=== PATIENT | female | born 1960 | race Asian ===

== ENCOUNTER 2018-12-09 16:07 | Inpatient (IN) | payer OTHER ==
[~2018-12-09] VITALS: Ht 167.6 cm; Wt 55.8 kg
--- NOTE | 2018-12-09 16:07 | Emergency Room Report ---
History of Present Illness General Chief Complaint: Generalized Weakness Source: Patient Present Illness HPI Patient is a 58-year-old female brought in by EMS after increased generalized weakness. Patient was having a bladder stimulator implanted. Reportedly the patient had been given subcu lidocaine.Patient denied any prior history of seizures. She reports having some pain during the procedure. Patient was noted to be tachycardic and hypertensive by the urologist from [facility] who performed the procedure. Patient was reportedly given 20 cc 1% lidocaine. Patient denies any recent illness. She denied prior history of hypertension or cardiac illness. Patient found to be somewhat unresponsive. Allergies: Coded Allergies: No Known Allergies (Unverified , 12/09/18) Patient History Past Medical History: see triage record Reviewed Nursing Documentation: PMH: Agreed; PSxH: Agreed Nursing Documentation-PMH Past Medical History: No Stated History Review of Systems All Other Systems: negative except mentioned in HPI Physical Exam Vital Signs Date Time Temp Pulse Resp B/P (MAP) Pulse Ox O2 Delivery O2 Flow Rate FiO2 12/09/18 16:00 98.2 78 18 119/75 100 General Appearance: well appearing, no apparent distress, alert, GCS 15 Head: normocephalic, atraumatic ENT: hearing grossly normal, normal voice Neck: full range of motion, supple Respiratory: chest non-tender, lungs clear, no respiratory distress, speaking full sentences Cardiovascular #1: normal inspection, normal peripheral pulses, no edema Gastrointestinal: normal inspection, normal bowel sounds Musculoskeletal: normal inspection, no calf tenderness Neurologic: normal inspection, alert, oriented x3, responsive, normal gait Psychiatric: mood/affect normal Skin: no rash Medical Decision Making Diagnostic Impression: Primary Impression: Chest pain Additional Impressions: Lidocaine overdose Incomplete right bundle branch block ER Course Patient presented for altered level consciousness during procedure. Differential diagnosis include was not limited to cardiac arrhythmia, intracranial hemorrhage, seizure, lidocaine toxicity among others. Patient was noted to have procedure which she had local anesthesia only. Per surgeon patient was noted to have tachycardia as well as hypertension at the time of altered mental status. EKG interpreted by me showed normal sinus rhythm with incomplete right bundle branch block and some ST changes which are nonspecific. Repeat EKG was unchanged. Patient's troponin was noted to be unchanged. Patient did have some chest pain which resolved after aspirin.Dr. Evan Cabezas was contacted for inpatient management Labs Test 12/09/18 16:44 12/09/18 18:11 White Blood Count 5.6 K/UL (4.8-10.8) Red Blood Count 4.41 M/UL (4.20-5.40) Hemoglobin 14.3 G/DL (12.0-16.0) Hematocrit 40.0 % (37.0-47.0) Mean Corpuscular Volume 91 FL (80-99) Mean Corpuscular Hemoglobin 32.3 PG (27.0-31.0) Mean Corpuscular Hemoglobin Concent 35.7 G/DL (32.0-36.0) Red Cell Distribution Width 10.2 % (11.6-14.8) Platelet Count 150 K/UL (150-450) Mean Platelet Volume 6.2 FL (6.5-10.1) Neutrophils (%) (Auto) 54.2 % (45.0-75.0) Lymphocytes (%) (Auto) 37.2 % (20.0-45.0) Monocytes (%) (Auto) 5.0 % (1.0-10.0) Eosinophils (%) (Auto) 2.2 % (0.0-3.0) Basophils (%) (Auto) 1.4 % (0.0-2.0) Prothrombin Time 10.1 SEC (9.30-11.50) Prothromb Time International Ratio 1.0 (0.9-1.1) Activated Partial Thromboplast Time 26 SEC (23-33) Sodium Level 143 MMOL/L (136-145) Potassium Level 3.4 MMOL/L (3.5-5.1) Chloride Level 107 MMOL/L (98-107) Carbon Dioxide Level 30 MMOL/L (21-32) Anion Gap 6 mmol/L (5-15) Blood Urea Nitrogen 13 mg/dL (7-18) Creatinine 0.8 MG/DL (0.55-1.30) Estimat Glomerular Filtration Rate > 60 mL/min (>60) Glucose Level 91 MG/DL (74-106) Calcium Level 8.7 MG/DL (8.5-10.1) Total Bilirubin 1.1 MG/DL (0.2-1.0) Direct Bilirubin 0.2 MG/DL (0.0-0.3) Aspartate Amino Transf (AST/SGOT) 19 U/L (15-37) Alanine Aminotransferase (ALT/SGPT) 19 U/L (12-78) Alkaline Phosphatase 71 U/L (46-116) Total Protein 6.4 G/DL (6.4-8.2) Albumin 3.5 G/DL (3.4-5.0) Globulin 2.9 g/dL Albumin/Globulin Ratio 1.2 (1.0-2.7) Troponin I 0.002 ng/mL (0.000-0.056) EKG Diagnostic Results Rate: normal Rhythm: NSR ST Segments: other - incomplet right bundle branch block Rhythm Strip Diag. Results EP Interpretation: yes Rhythm: NSR, no PVC's, no ectopy Last Vital Signs Date Time Temp Pulse Resp B/P (MAP) Pulse Ox O2 Delivery O2 Flow Rate FiO2 12/09/18 16:00 98.2 78 18 119/75 100 Status: improved Disposition: ADMITTED INPATIENT Condition: Serious Jason Raya MD Dec 09, 2018 16:07
--- NOTE | 2018-12-09 16:26 | NUR ---
ED Nurse Note: Pt was having procedure for over active bladder and she developed HTN 190/115. Upon arrival pt denies pain. Pt is AAOx4 respirations are even and unlabored. Fam at bedside.
--- NOTE | 2018-12-09 16:40 | NUR ---
ED Nurse Note: PT TO CT VIA JOMAR
[2018-12-09 16:47] VITALS: BP 130/76
--- NOTE | 2018-12-09 16:50 | NUR ---
ED Nurse Note: PT BACK FROM CT VIA JOMAR
--- NOTE | 2018-12-09 17:07 | Diagnostic Imaging Report ---
Indications: Headache Technique: Spiral acquisitions obtained through the brain. Angled axial and coronal 5 x 5 mm slices were reconstructed. Total dose length product 1418.12 mGycm. CTDI vol(s) 70.38 mGy. Dose reduction achieved using automated exposure control Comparison: None. Findings: No acute intercranial hemorrhage nor edema. No mass effect nor midline shift. 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 Otherwise intact calvarium. Normal size ventricles and extra axial CSF spaces. Visualized orbits and sinuses are unremarkable. 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
[2018-12-09 17:16] LABS: BASOPHILS % (AUTO) 1.4 % (0.0-2.0); EOSINOPHILS % (AUTO) 2.2 % (0.0-3.0); HEMOGLOBIN 14.3 G/DL (12.0-16.0); LYMPHOCYTES % (AUTO) 37.2 % (20.0-45.0); MEAN CORPUSCULAR VOLUME 91 FL (80-99); NEUTROPHILS % (AUTO) 54.2 % (45.0-75.0); PLATELET COUNT 150 K/UL (150-450); RED BLOOD COUNT 4.41 M/UL (4.20-5.40); RED CELL DISTRIBUTION WIDTH 10.2 % (11.6-14.8); WHITE BLOOD COUNT 5.6 K/UL (4.8-10.8)
[2018-12-09 17:19] LABS: ANION GAP 6 mmol/L (5-15); BLOOD UREA NITROGEN 13 mg/dL (7-18); CALCIUM 8.7 MG/DL (8.5-10.1); CARBON DIOXIDE 30 MMOL/L (21-32); CHLORIDE 107 MMOL/L (98-107); CREATININE 0.8 MG/DL (0.55-1.30); POTASSIUM 3.4 MMOL/L (3.5-5.1); SODIUM 143 MMOL/L (136-145)
[2018-12-09 17:30] LABS: ALANINE AMINOTRANSFERASE 19 U/L (12-78); ALBUMIN 3.5 G/DL (3.4-5.0); ALBUMIN/GLOBULIN RATIO 1.2 (1.0-2.7); ALKALINE PHOSPHATASE 71 U/L (46-116); ASPARTATE AMINO TRANSFERASE 19 U/L (15-37); BILIRUBIN,TOTAL 1.1 MG/DL (0.2-1.0)
[2018-12-09 17:31] LABS: BILIRUBIN,DIRECT 0.2 MG/DL (0.0-0.3)
[2018-12-09] MEDS ORDERED: Aspirin Baby 81mg ORAL ONE (17:45)
--- NOTE | 2018-12-09 19:07 | NUR ---
ED Nurse Note: REPORT GIVEN TO AME GARCIA.
[2018-12-09 19:22] VITALS: BP 126/79
--- NOTE | 2018-12-09 19:23 | NUR ---
ED Nurse Note: recieved pt on bed, daughter on bedside. pt is connected to the monitor with vs within normal limit.pt denies chest pain. pt has no complaint at the moment. will continue to monitor.
[2018-12-09] MEDS ORDERED: NKM (19:37)
[2018-12-09 21:30] VITALS: BP 130/80
--- NOTE | 2018-12-09 21:30 | NUR ---
ED Nurse Note: pt was admitted to the hospital report given to lucinda cerda, pt tranferd to tele.
--- NOTE | 2018-12-09 21:40 | NUR ---
NURSE NOTES: Received patient from ED via gurney. Patient is awake alert and oriented x4. Breathing even and unlabored on room air. Placed on rug dyer helper showing SR. Vitals signs stable. Oriented to room and unit. Bed in lowest position. Call light within reach. Will continue plan of care. Addendum: 12/09/18 at 2320 by KATHIE WALLS RN Notified Dr. Cabezas for admission order.
--- NOTE | 2018-12-09 23:00 | NUR ---
NURSE NOTES: Called 's contact number for admission order, phone kept ringing and unable to leave a message. Left a message at [phone] for admission order. Awaiting call back.
[2018-12-10] VITALS: BP 110/68
--- NOTE | 2018-12-10 01:30 | NUR ---
NURSE NOTES: Admission order received and carried out
[2018-12-10 04:00] VITALS: BP 93/42
--- NOTE | 2018-12-10 07:20 | NUR ---
HAND-OFF: Report given to AME Monterroso.
--- NOTE | 2018-12-10 07:45 | NUR ---
NURSE NOTES: Received report from AME Gasca. Patient in bed resting. No active s/s cardiac, respiratory distress noticed at this time. SR with HR 69. Denies pain at this time. IV site asymptomatic, patent, intact. AO x4. Bed in lowest position, side rails up x3, call light within reach. Will continue to monitor.
[2018-12-10 08:00] VITALS: BP_SYST 109; BP_SYST 112; BP_DIAS 71; BP_DIAS 77
[2018-12-10] MEDS ORDERED: Aspirin Baby 81mg NG SCH (09:00)
[2018-12-10 12:00] VITALS: BP 112/77
[2018-12-10 16:00] VITALS: BP 122/77
--- NOTE | 2018-12-10 16:13 | NUR ---
*-* INSURANCE*-* ALL CLINICALS HAVE BEEN FAXED TO: IPA: MARY LOU Garcia#: [phone]
--- NOTE | 2018-12-10 17:10 | Cardiology Progress Note ---
Assessment/Plan Assessment/Plan The patient is seen and examined,full consult note is dictated. Objective Last 24 Hour Vital Signs Date Time Temp Pulse Resp B/P (MAP) Pulse Ox O2 Delivery O2 Flow Rate FiO2 12/10/18 16:00 97.2 73 20 122/77 (92) 97 12/10/18 12:00 97.9 69 19 112/77 (89) 97 12/10/18 12:00 73 12/10/18 09:00 Room Air 12/10/18 08:00 97.5 73 20 109/71 (84) 97 12/10/18 08:00 73 12/10/18 04:00 69 12/10/18 04:00 97.2 67 20 93/42 (59) 97 12/10/18 00:00 98.1 62 20 110/68 (82) 95 12/10/18 00:00 58 12/09/18 22:06 67 12/09/18 21:30 97.9 67 20 130/80 (97) 100 12/09/18 21:30 Room Air 12/09/18 21:30 98.0 68 16 126/79 100 Room Air 12/09/18 19:22 98.0 68 16 126/79 100 Room Air Intake and Output 12/09/18 12/10/18 19:00 07:00 Intake Total 1000 ml 240 ml Balance 1000 ml 240 ml Intake Oral 240 ml IV Total 1000 ml # Voids 1 Laboratory Tests Test 12/09/18 18:11 12/10/18 06:25 Troponin I 0.002 ng/mL (0.000-0.056) 0.013 ng/mL (0.000-0.056) Jared Duenas MD Dec 10, 2018 17:10
--- NOTE | 2018-12-10 17:15 | History and Physical Report ---
DATE OF ADMISSION: 12/09/2018 SUBJECTIVE: This is a 58-year-old oriental female came to the emergency room for acute chest pain and was found to have incomplete right bundle-branch block. The patient denies any fever or chills. PAST MEDICAL HISTORY: None. MEDICATIONS: None. PHYSICAL EXAMINATION: GENERAL: This is elderly Indonesian male sitting in the bed. Family is at bedside. No distress. The patient is Full Code. VITAL SIGNS: Blood pressure 93/42 asymptomatic, pulse 69, respirations 20, and temperature 97.2. HEENT: NAD. SKIN: Good skin turgor. CHEST: Bilaterally clear. CARDIOVASCULAR: Regular rhythm. No gallop. No murmur. ABDOMEN: Soft. Positive bowel sound. EXTREMITIES: No CCE. NEUROLOGICALLY: No focal deficit. LABORATORY AND DIAGNOSTIC DATA: White count 5.6, hemoglobin 14, platelets are 150. Chemistry panel, sodium 143, potassium 3.4. Troponin is 0.0022 and now 0.13. Albumin 3.5. EKG nonspecific ST-T wave changes and right bundle-branch block. ASSESSMENT: 1. Acute coronary syndrome. 2. Right bundle-branch block. 3. Hypokalemia. 4. Positive troponin, waiting for Cardiology consult. Continue aspirin. 5. Rule out of myocardial infarction. 6. Probably the patient needs a stress test. Discussed with daughter and mother. Evan Cabezas M.D. DR: Brown JOB#: [id number] CC: DIANE
--- NOTE | 2018-12-10 17:24 | NUR ---
NURSE NOTES: Dr. Cabezas made aware patient cleared by cardiology standpoint. Per Dr. Cabezas discharge patient home and follow up in office on Friday12/14/18, at [phone]. [phone] [facility] [address].
--- NOTE | 2018-12-10 18:30 | NUR ---
NURSE NOTES: Patient discharged home per Dr. Cabezas. Patient ID removed and placed in shredder. IV removed, quality assurance monitor returned to monitoring and evaluation advisor. Patient taking personal vehicle with family member in stable condition. Patient discharged with all belongings. Made patient, family member aware of follow up appointment.
--- NOTE | 2018-12-10 20:11 | NUR ---
CASE MANAGEMENT: REVIEW 58/F BIBA FROM HOME CC: CHEST PAIN SI: LIDOCAINE OVERDOSE . INCOMPLETE RIGHT BUNDLE BRANCH BLOCK T 97.9 HR 78 RR 18 BP 130/80 SAT 100% ROOM AIR K 3.4 IS: ASA PO X1 K-DUR 40mEq PO X1 PATIENT ADMITTED TO TELEMETRY UNIT 12/09/2018 DCP: PATIENT IS FROM HOME
--- NOTE | 2018-12-11 14:31 | NUR ---
*-* INSURANCE *-* ALL CLINICALS AND REVIEWS FAXED TO: [facility] F:[phone] Addendum: 12/11/18 at 1436 by ANA DANIELSON CM ARLETTE#[id number]
--- NOTE | 2018-12-11 16:22 | Discharge Summary ---
Discharge Summary Discharge Summary _ DATE OF ADMISSION: 12/09/2018 DATE OF DISCHARGE: 12/10/2018 DISCHARGED BY: Dr. Evan Cabezas CONSULTANTS: Dr. Jared Duenas BRIEF HOSPITAL COURSE: Patient is a 58-year-old [place] female, who came to the emergency room for complaints of On evaluation at ED, vital signs were stable. Patient was undergoing an outpatient procedure. At that time she had altered mental status. She was noted to have incomplete right bundle branch block and ST changes. Repeat EKG was unchanged. Initial troponin was negative. She complained of chest pain episode. She was admitted for evaluation of chest pain and right bundle branch block. She underwent cardiac evaluation. FINAL DIAGNOSES: [] DISPOSITION: Patient was discharged home. DISCHARGE INSTRUCTIONS: Follow-up in a week. I have been assigned to complete a discharge summary on this account, I was not involved with the patient's management. Grace Posada NP Dec 11, 2018 16:22
--- NOTE | 2018-12-11 20:15 | Consultation ---
DATE OF CONSULTATION: 12/10/2018 CONSULTING PHYSICIAN: Jared Duenas M.D. REFERRING PHYSICIAN: Lopez Cabezas M.D. REASON FOR CONSULTATION: Management of chest pain. HISTORY OF PRESENT ILLNESS: The patient is a very unfortunate 58-year-old lady, who was brought in by EMS for management of tachycardia, hypotension, and generalized weakness. Apparently, the patient was having a procedure at [facility], which was a bladder stimulator implantation and during this procedure becomes tachycardic and hypotensive. Reportedly, the patient received 20 mL of 1% lidocaine for this procedure. She was brought into the emergency department of this hospital. Initial blood pressure was 119/75 mmHg and heart rate was 78 beats per minute. ECG showed sinus rhythm with incomplete right bundle-branch block and nonspecific ST and T-wave abnormalities. Initial troponin I level was reported to be within normal limits. The patient was, however, admitted to telemetry for evaluation and management of chest pain. Cardiology consultation was made at the request of Dr. Cabezas for evaluation and management of chest pain. In the emergency department on 12/09/2018, the patient had a 2-D echocardiography, which showed normal LV systolic function with LVEF of about 70% to 75%, mild aortic valve sclerosis, normal left ventricular diastolic function, mild mitral regurgitation, and right ventricular systolic pressure estimated to be 41 mmHg consistent with mild pulmonary hypertension. PAST MEDICAL HISTORY: None. PAST SURGICAL HISTORY: Bladder stimulator implantation. ALLERGIES: No known drug allergies. FAMILY HISTORY: No premature coronary artery disease or arrhythmogenic in the first-degree relatives. REVIEW OF SYSTEMS: HEENT: Denies any headache, diplopia, or blurred vision. CONSTITUTIONAL: Denies any fever, chills, night sweats, or weight loss. The patient had some generalized weakness. CARDIOVASCULAR: chest pain, shortness of breath, PND, orthopnea, or leg swelling. PULMONARY: Denies any cough, hemoptysis, or wheezing. GASTROINTESTINAL: Denies any nausea, vomiting, diarrhea, constipation, abdominal pain, or GI bleed. GENITOURINARY: Denies any hematuria, dysuria, or incontinence. NEUROLOGIC: Denies any motor dysfunction, sensory deficit, or altered speech. MEDICATIONS: List of medications in the outpatient setting includes none. PHYSICAL EXAMINATION: VITAL SIGNS: Blood pressure at time of arrival to the hospital was 119/75, pulse 78, respirations 18, O2 saturation 100% on room air, and temperature 98.2 degrees Fahrenheit. GENERAL: The patient is a very unfortunate 58-year-old female, in no apparent respiratory distress. Alert and oriented x4. HEENT: Atraumatic and normocephalic. Anicteric. Pupils are equal, round, and reactive to light and accommodation. Extraocular muscles intact. NECK: JVP less than 5 cm. No carotid bruit. Carotid upstrokes 2+ bilaterally. CARDIOVASCULAR: Normal S1, S2. Regular rate and rhythm. No murmurs, gallops, or rubs. PMI is in fourth intercostal space in the midclavicular line. LUNGS: Clear to auscultation bilaterally. ABDOMEN: Soft, nontender, and nondistended. No hepatosplenomegaly. Positive bowel sounds. EXTREMITIES: No evidence of edema, clubbing, or cyanosis. LABORATORY FINDINGS: Sodium is 143, potassium 3.4, chloride 107, bicarbonate 30, BUN 13, and creatinine 0.8. Glucose 91. Calcium is 8.7. Troponin I x3 negative. INR is 1.0. WBC 5.6, hemoglobin 14.3, hematocrit 40.0, and platelet count 150. INR is 1.0. CT of head done showed no acute intracranial process. ASSESSMENT AND PLAN: The patient is a very unfortunate 58-year-old lady who is seen in Cardiology consultation at the request of Dr. Cabezas. 1. This is a noncardiac chest pain most likely secondary to tachycardia that happened during the implantation of the bladder stimulator. No further cardiac intervention is required. A 12-lead electrocardiogram does not show any acute ischemic changes. 2. Acute myocardial infarction is ruled out. 3. Hypokalemia, most likely explaining the patient's generalized weakness. Potassium supplement is required. I would like to thank, Dr. Cabezas, for allowing me to participate in the care of this patient. Jared Duenas M.D. DR: TAN JOB#: [id number] CC:
--- NOTE | 2018-12-12 08:37 | NUR ---
CASE MANAGEMENT: CM review and clinical information (face sheet/DC summary/ ER MD Note/ H&P) faxed to [facility] @ [phone]
== END 2018-12-10 19:47 | disposition home or self-care (01) | DRG 313 ==
LOC: EDBD 16:07 → EMR 17:40 → 2E 19:42 → EDBEDREQSVC 20:57 → EDBEDREQ 20:58 → 2E 12-10 00:03
DX: R07.89 Other chest pain (principal); I45.10 Unspecified right bundle-branch block; E87.6 Hypokalemia; R00.0 Tachycardia, unspecified
CPT/HCPCS: 36415; 70450; 80053; 82248; 84484; 85025; 85610; 85730; 93005; 93306; 96360; 99285; J8499